=== PATIENT | male | born 1980 | race Caucasian/White ===

== ENCOUNTER → 2021-12-04 | Outpatient (CLI) | payer OTHER ==
--- NOTE | 2021-12-04 10:50 | KCIC ---
EXAM: Lumbar spine MRI without contrast. HISTORY: Lower back pain. TECHNIQUE: Multiplanar, multisequence magnetic resonance imaging of the lumbar spine was performed wi thout contrast. COMPARISON: None. FINDINGS: There is 2 mm retrolisthesis of L3 on L4, 3 mm retrolisthesis of L4 on L5 and 3 mm anteroli sthesis of L5 on S1. There are suspected associated pars interarticularis defects at L5-S1. There is degenerative endplate remodeling with disc space narrowing, osteophytosis and Schmorl's node formatio n at L4-L5 and L5-S1. There is disc desiccation at L3-S1. There is no suspicious osseous lesion. Ther e is no acute or subacute fracture. The conus terminates at L1. There is increased epidural fat at th e lumbosacral junction. At L1-L2, there is a shallow right paracentral disc protrusion. There is no stenosis. At L2-L3, there is no stenosis. At L3-L4, there is a shallow posterior central disc protrusion and annular tear superimposed on a dis c bulge and endplate remodeling. There is mild central canal stenosis. At L4-L5, there is a shallow posterior central to right lateral recess disc protrusion and 3 mm infer ior extrusion. There are also broad-based foraminal to extra foraminal disc protrusions. These are meier perimposed on a disc bulge and endplate osteophytosis. There is retrolisthesis. There is moderate elizabeth ateral foraminal stenosis with abutment of the exiting L4 nerve roots. There is mild central canal st enosis and narrowing of the right greater than left lateral recess. At L5-S1, there is a shallow posterior central disc protrusion and there are bilateral foraminal to e xtra foraminal disc protrusions and osteophyte complexes superimposed on a disc bulge and endplate os teophytosis. There is anterolisthesis. There is severe bilateral foraminal stenosis with abutment the exiting L5 nerve roots. There is narrowing of the thecal sac due to epidural lipomatosis. IMPRESSION: Multilevel degenerative change involving the lumbar spine, described in detail above. Thi s is associated with mild central canal stenosis at L3-L4, moderate bilateral foraminal and mild cent ral canal stenosis with narrowing of the left lateral recess at L4-L5, and severe bilateral foraminal stenosis at L5-S1. Electronically signed by: Amy Newton MD (12/04/2021 10:48 AM) [id number]
== END ==
LOC: KCIC MRI 07:52
PROVIDERS: ATTEND Family Medicine
DX: M47.816 Spondylosis without myelopathy or radiculopathy, lumbar region (principal); M48.07 Spinal stenosis, lumbosacral region; M43.17 Spondylolisthesis, lumbosacral region; M51.27 Other intervertebral disc displacement, lumbosacral region; M25.78 Osteophyte, vertebrae; E88.2 Lipomatosis, not elsewhere classified; M51.47 Schmorl's nodes, lumbosacral region
CPT/HCPCS: 72148